=== PATIENT | female | born 1985 | race American Indian/Alaskan Native ===

== ENCOUNTER 2016-05-26 14:33 | Emergency (ER) | payer MEDICAID ==
[2016-05-26 15:24] VITALS: BP 130/93
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
[2016-05-26 16:01] LABS: Basophils % (Auto) 0.3 % (0.0-1.8); Eosinophils % (Auto) 0.8 % (0.0-4.3); Hematocrit 39.4 % (30.3-42.9); Hemoglobin 12.8 gm/dl (10.1-14.3); Mean Corpuscular HGB Conc 32 % (30-34); Mean Corpuscular Hemoglobin 28 pg (28-32); Mean Corpuscular Volume 86 fl (79-97); Platelet Count 293 K/mm3 (140-440); Red Blood Count 4.58 M/mm3 (3.65-5.03); Red Cell Distribution Width 14.1 % (13.2-15.2); White Blood Count 6.4 K/mm3 (4.5-11.0)
[2016-05-26 16:34] LABS: Alanine Aminotransferase 10 units/L (7-56); Albumin 4.1 g/dL (3.9-5); Albumin/Globulin Ratio 1.4 %; Alkaline Phosphatase 45 units/L (35-129); Anion Gap 17 mmol/L; Bilirubin,Total 0.5 mg/dL (0.1-1.2); Blood Urea Nitrogen 9 mg/dL (7-17); Calcium 8.7 mg/dL (8.4-10.2); Carbon Dioxide 24 mmol/L (22-30); Glucose 89 mg/dL (65-100); Potassium 3.9 mmol/L (3.6-5.0); Sodium 139 mmol/L (137-145)
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
--- NOTE | 2016-05-26 18:11 | Cat Scan Report ---
FINAL REPORT PROCEDURE: CT HEAD/BRAIN WO CON TECHNIQUE: Computerized tomography of the head was performed without contrast material. HISTORY: Syncope. COMPARISON: No prior studies are available for comparison. FINDINGS: Skull and scalp: Normal. Paranasal sinuses: Normal. Ventricles and subarachnoid spaces: Normal. Cerebrum: No evidence of hemorrhage, acute infarction or mass. Minimal subtle high attenuation seen in the left frontal region (45-47) felt to be a vessel. Cerebellum and brainstem: No evidence of hemorrhage, acute infarction or mass. Vasculature: Normal. Comments: None. IMPRESSION: No CT evidence of acute intracranial pathology.
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
== END 2016-05-26 23:07 | disposition home or self-care (01) ==
LOC: ED 14:33
DX: S09.93XA Unspecified injury of face, initial encounter (principal); Z86.711 Personal history of pulmonary embolism; Y08.89XA Assault by other specified means, initial encounter; Y93.9 Activity, unspecified; Y92.9 Unspecified place or not applicable; Y99.9 Unspecified external cause status
CPT/HCPCS: 36415; 70450; 70486; 80053; 84703; 85025

== ENCOUNTER 2017-05-19 20:52 | Emergency (ER) | payer OTHER | END 2017-05-19 21:00 | disposition left against medical advice (07) | LOC: ED 20:52 | DX: O21.0 Mild hyperemesis gravidarum (principal); Z3A.08 8 weeks gestation of pregnancy; Z53.21 Procedure and treatment not carried out due to patient leaving prior to being seen by health care provider ==

== ENCOUNTER 2017-06-01 19:00 | Emergency (ER) | payer OTHER ==
[2017-06-01] MEDS ORDERED: ASPIRIN PO ONE (19:43)
[2017-06-01 20:08] LABS: Basophils % (Auto) 0.4 % (0.0-1.8); Eosinophils # (Auto) 0.1 K/mm3 (0.0-0.4); Eosinophils % (Auto) 0.6 % (0.0-4.3); Hematocrit 40.4 % (30.3-42.9); Hemoglobin 13.1 gm/dl (10.1-14.3); Lymphocytes # (Auto) 2.3 K/mm3 (1.2-5.4); Mean Corpuscular HGB Conc 32 % (30-34); Mean Corpuscular Hemoglobin 28 pg (28-32); Mean Corpuscular Volume 87 fl (79-97); Monocytes # (Auto) 0.8 K/mm3 (0.0-0.8); Platelet Count 301 K/mm3 (140-440); Red Blood Count 4.66 M/mm3 (3.65-5.03); Red Cell Distribution Width 13.3 % (13.2-15.2)
[2017-06-01 20:18] LABS: INR 0.98 (0.87-1.13)
[2017-06-01 20:31] LABS: BUN/Creatinine Ratio 5; Blood Urea Nitrogen 3 mg/dL (7-17); Calcium 9.4 mg/dL (8.4-10.2); Hemolysis Index 7
[2017-06-01 22:42] LABS: Bacteria,Urine 1+ /HPF (Negative); Bilirubin,Urine NEG (Negative); Blood,Urine NEG (Negative); Color,Urine Yellow (Yellow); Nitrite,Urine NEG (Negative); Protein,Urine <15 mg/dL mg/dL (Negative); Urobilinogen,Urine < 2.0 mg/dL (<2.0); WBC,Urine < 1.0 /HPF (0.0-6.0)
--- NOTE | 2017-06-02 03:06 | Ultrasound Report ---
FINAL REPORT EXAM: US OB < = 14 WEEKS FETUS, US OB TRANSVAGINAL HISTORY: Pelvic pain, cramping. TECHNIQUE: Directed transabdominal and transvaginal ultrasound examination of the pelvis was performed. No prior studies are available for comparison. FINDINGS: The patient reports her last menstrual period 04/10/2017, corresponding to current gestational age of 7 weeks, 4 days. The uterus is anteverted, and measures approximately 6.8 x 6.2 x 10.9 cm. There is a single live intrauterine gestation, with visualization of the gestational sac, yolk sac, and pole. The crown-rump length measures 1.39 cm, corresponding to gestational age of 7 weeks, 5 days (estimated due date 01/14/2018). There is an amorphous, slightly hypoechoic region seen adjacent to the gestational sac in the mid uterine body, measuring approximately 0.8 x 0.4 x 1.2 cm. This probably represents small subchorionic hemorrhage. cardiac activity is identified with a heart rate of 164 beats per minute. The right ovary measures 2.5 x 1.4 x 3.2 cm, normal in appearance. The left ovary measures 4.2 x 3.3 x 4.5 cm, and contains 3.1 cm cystic lesion with low level internal echoes, likely hemorrhagic cyst. No other adnexal mass is seen. There is no significant pelvic free fluid. IMPRESSION: 1. Single live intrauterine , with gestational age of 7 weeks, 5 days, as estimated by crown-rump length. 2. Small 0.8 x 0.4 x 1.2 cm hypoechoic region of probable subchorionic hemorrhage in the midbody. Continued follow-up is recommended. 3. 3.1 cm probable hemorrhagic cyst in the left ovary.
[2017-06-02 03:24] VITALS: BP 115/81
== END 2017-06-02 06:30 | disposition left against medical advice (07) ==
LOC: ED 19:00
DX: R19.7 Diarrhea, unspecified (principal); R06.02 Shortness of breath; R11.10 Vomiting, unspecified; R10.2 Pelvic and perineal pain; Z53.21 Procedure and treatment not carried out due to patient leaving prior to being seen by health care provider
CPT/HCPCS: 36415; 76801; 76817; 80048; 81001; 84484; 84702; 85025; 85610; 93005; 93010

== ENCOUNTER 2017-10-06 14:27 | Emergency (ER) | payer MEDICAID ==
[2017-10-06 14:37] VITALS: BP 110/68
== END 2017-10-06 14:45 | disposition left against medical advice (07) ==
LOC: ED 14:27
DX: S61.211A Laceration without foreign body of left index finger without damage to nail, initial encounter (principal); W45.8XXA Other foreign body or object entering through skin, initial encounter; Y93.9 Activity, unspecified; Y99.9 Unspecified external cause status; Y92.9 Unspecified place or not applicable; Z53.21 Procedure and treatment not carried out due to patient leaving prior to being seen by health care provider